=== PATIENT | female | born 1990 | race Caucasian/White ===

== ENCOUNTER 2016-10-04 20:14 | Emergency (ER) | payer MEDICAID ==
--- NOTE | 2016-10-04 21:27 | EDM.PDOC ---
ED HPI - General Chief Complaint: Genitourinary Problem Stated Complaint: POSS UTI Time Seen by Provider: 10/04/16 21:25 Source of Information: Reports: Patient History Limitations: Reports: No limitations - History of Present Illness INITIAL COMMENTS - FREE TEXT/NARRATIVE: Patient presents for evaluation and treatment of urinary symptoms. Patient is approximately 18 weeks . Patient reports that her symptoms first began several weeks ago. She was seen by her PERIANESTHESIA NURSE and had a UA with culture done recently. She said she did not find out the results that she was not start any antibiotics. Patient reports for the last 3 days her urinary symptoms have worsened with today being the worst. Current symptoms include dysuria, incontinence, increased urinary frequency and cloudy urine. Patient also reports right lower quadrant abdominal pain radiating to the right flank and right back. She denies any fevers, chills, nausea, vomiting or vaginal bleeding. Patient is a . Past surgeries include a . She still has her gallbladder and appendix. She is scheduled to see PERIANESTHESIA NURSE in about one month on October 31. Review of the patient's medical records show that she did have a UA and a urine culture mid-September. This showed 1+ leuks with the culture showing contamination. Location, : Reports: abdomen (RLQ), lower back (right), flank (right) - Related Data Allergies/ADRs: Allergies Allergy/AdvReac Type Severity Reaction Status Date / Time No Known Allergies Allergy Verified 10/04/16 20:27 Home Meds: Home Meds Vitamins. 10/04/16 [History] Past Medical History Genitourinary History: Reports: UTI, recurrent - Past Surgical History Female Surgical History: Reports: section Social & Family History - Tobacco Use Smoking Status *Q: Never Smoker Second Hand Smoke Exposure: No - Recreational Drug Use Recreational Drug Use: No ED ROS GENERAL - Review of Systems Review Of Systems: See Below Constitutional: Denies: fever, chills GI/Abdominal: Reports: Abdominal pain (RLQ). Denies: Nausea, Vomiting : Reports: dysuria, flank pain (right), frequency, incontinence (x1), other ( denies any vaginal bleeding) Musculoskeletal: Reports: back pain (right low to mid back) ED EXAM - Physical Exam Exam: See Below Exam Limited By: No limitations General Appearance: alert, WD/WN, no apparent distress Respiratory/Chest: no respiratory distress, lungs clear, normal breath sounds Cardiovascular: normal peripheral pulses, regular rate, rhythm, systolic murmur (grade 2) GI/Abdominal: normal bowel sounds, tender (RLQ), gravid uterus. No: rebound Fundal Height in cm: 18 heart tones: present heart tones per min: 157 Back Exam: CVA tenderness (R) Neurological: alert, oriented, normal cognition Psychiatric: normal affect, normal mood Skin Exam: Warm, Dry, Normal color Course - Vital Signs Last Recorded V/S: Last Vital Signs Temp 37.4 C 10/05/16 00:06 Pulse 80 10/05/16 00:06 Resp 16 10/04/16 23:08 BP 100/52 L 10/04/16 23:08 Pulse Ox 100 10/05/16 00:06 - Orders/Labs/Meds Orders: Active Orders 24 hr Category Date Time Status CULTURE URINE [RM] Stat Lab 10/04/16 22:53 Results Labs: Laboratory Tests 10/04/16 10/04/16 10/04/16 Range/Units 21:10 21:30 21:30 WBC 12.95 H (3.98-10.04) K/mm3 RBC 3.66 L (3.98-5.22) M/mm3 Hgb 11.2 (11.2-15.7) gm/L Hct 32.9 L (34.1-44.9) % MCV 89.9 (79.4-94.8) fl MCH 30.6 (25.6-32.2) pg MCHC 34.0 (32.2-35.5) g/dl RDW Std Deviation 42.8 (36.4-46.3) fL Plt Count 220 (182-369) K/mm3 MPV 9.9 (9.4-12.3) fl Neutrophils % (Manual) 85 H (40-60) % Band Neutrophils % 0 (0-10) % Lymphocytes % (Manual) 13 L (20-40) % Atypical Lymphs % 0 % Monocytes % (Manual) 2 (2-10) % Eosinophils % (Manual) 0 L (0.7-5.8) % Basophils % (Manual) 0 L (0.1-1.2) Platelet Estimate Adequate Plt Morphology Comment Normal RBC Morph Comment Normal Sodium 138 (136-145) mEq/L Potassium 3.5 (3.5-5.1) mEq/L Chloride 103 (98-107) mEq/L Carbon Dioxide 23 (21-32) mEq/L Anion Gap 15.5 H (5-15) BUN 12 (7-18) mg/dL Creatinine 0.7 (0.55-1.02) mg/dL Est Cr Clr Drug Dosing 95.48 mL/min Estimated GFR (MDRD) > 60 (>60) mL/min BUN/Creatinine Ratio 17.1 (14-18) Glucose 99 (74-106) mg/dL Calcium 8.6 (8.5-10.1) mg/dL Total Bilirubin 0.6 (0.2-1.0) mg/dL AST 17 (15-37) U/L ALT 23 (14-59) U/L Alkaline Phosphatase 52 (46-116) U/L C-Reactive Protein 0.7 (<1.0) mg/dL Total Protein 6.8 (6.4-8.2) g/dl Albumin 3.5 (3.4-5.0) g/dl Globulin 3.3 gm/dL Albumin/Globulin Ratio 1.1 (1-2) Urine Color Yellow (Yellow) Urine Appearance Cloudy H (Clear) Urine pH 6.5 (5.0-8.0) Ur Specific [place] > or = 1.030 (1.005-1.030) Urine Protein 3+ H (Negative) Urine Glucose (UA) Negative (Negative) Urine Ketones Trace H (Negative) Urine Occult Blood 3+ H (Negative) Urine Nitrite Negative (Negative) Urine Bilirubin Negative (Negative) Urine Urobilinogen 0.2 (0.2-1.0) Ur Leukocyte Esterase 3+ H (Negative) Urine RBC 0-5 (0-5) /hpf Urine WBC 50-75 H (0-5) /hpf Urine WBC Clumps Few (NOT SEEN) /hpf Ur Squamous Epith Cells 0-5 (0-5) /hpf Urine Bacteria Many H (FEW) /hpf Hyaline Casts 0-5 (0-5) /lpf Urine Mucus Not seen (FEW) /hpf Meds: Medications Discontinued Medications Generic Name Dose Route Start Last Admin Trade Name Freq PRN Reason Stop Dose Admin Acetaminophen 650 mg 10/04/16 22:44 03/24/17 22:51 Tylenol PO 10/04/16 22:45 650 mg NOW ONE Administration Amoxicillin 500 mg 10/04/16 22:30 10/04/16 22:51 Amoxil PO 10/04/16 22:31 500 mg ONETIME ONE Administration Oxycodone/Acetaminophen 1 tab 10/04/16 23:09 10/04/16 23:23 Percocet 325-5 Mg PO 10/04/16 23:10 1 tab ONETIME ONE Administration - Re-Assessments/Exams Free Text/Narrative Re-Assessment/Exam: 10/04/16 23:20 The patient's lab studies have returned. UA is 2+ leuks, 2+ protein, trace ketones, 3+ many bacteria seen on microscopy. urine sent for culture. White blood count is 12.95 with no band cells. Hgb is 11.2, platelets are 200. CRP is within normal limits at 0.7. Sodium is 138, potassium 3.5 chloride is 103. Anion gap is 15.5. I reviewed the lab results with the patient. I am slightly concerned about her right lower quadrant abdominal pain, however, I do not feel that this is appendicitis. I do not see the need to risk radiation to the fetus at this time. I am concerned however that over the course of her stay her pain increased in severity. I did order her some Tylenol. I Discussed case with Dr. Pires. Recommended close follow-up. Pain meds as needed. Patient was ordered one Percocet. 10/04/16 23:40 Patient is feeling greatly improved. She would like to go home at this time. Patient lives in [facility]. She is warned that if her symptoms change or worsen she is to return immediately to the ER. Will have her followup next week with Dr. Moran. Discharge instructions as documented. Departure - Departure Time of Disposition: 23:46 Disposition: Home, Self-Care 01 Condition: fair Clinical Impression: UTI, Urinary tract infectious disease, Instructions: Urinary Tract Infection, Adult Referrals: Sen Moran MD [Primary Care Provider] - Forms: ED Department Discharge Additional Instructions: Rx for amoxicillin 500mg 1 tab PO tid x 10 days RX for percocet 5-325mg tabs #10 1 every 4-6 hours prn pain You were given medication in the ER that can affect your ability to drive and operate machinery. No driving or operating machinery within 12 hours of taking prescription narcotic pain medication. Take the amoxicillin as prescribed. your first dose was given here in the ER. Take one tab 3 times a day for 10 days. make sure you are drinking plenty of fluids. may take [id number] Tylenol as needed for less severe pain. For more severe pain, take Percocet one tab every 4-6 hours as needed.. there is Tylenol in Percocets to do not take more than 4 g of Tylenol from all sources a day. Percocet can be habit-forming, I recommend you take as few of these as needed to control your pain. Do not drive or operate machinery within 12 hours of taking the Percocet. Follow up with Dr. Moran early next week. Please return to the ER immediately should should your symptoms change or worsen. - My Orders Last 24 Hours: My Active Orders 10/04/16 22:53 CULTURE URINE [RM] Stat - Assessment/Plan Last 24 Hours: My Active Orders 10/04/16 22:53 CULTURE URINE [RM] Stat
[2016-10-04] MEDS ORDERED: Amoxicillin 250 MG Cap PO ONE (22:30)
[2016-10-04] MEDS ORDERED: Acetaminophen 325 MG Tab PO ONE (22:44)
[2016-10-04 23:08] VITALS: BP 100/52
[2016-10-04] MEDS ORDERED: Acetaminophen/oxyCODONE 325-5 MG Tab PO ONE (23:09)
== END 2016-10-05 00:03 | disposition home or self-care (01) ==
LOC: JD.ED 20:14
DX: O23.42 Unspecified infection of urinary tract in pregnancy, second trimester (principal); Z3A.18 18 weeks gestation of pregnancy
CPT/HCPCS: 36415; 80053; 81001; 85025; 86140; 87086; 87088; 87186; 99284; A9270; 99283

== ENCOUNTER 2017-02-19 02:08 | Inpatient (IN) | payer MEDICAID ==
--- NOTE | 2017-02-18 14:26 | PCM.LDHP ---
L&D History of Present Illness - General Date of Service: 02/18/17 Admit Problem/Dx: Admission Diagnosis/Problem Admission Diagnosis/Problem Source of Information: Patient History Limitations: Reports: No Limitations - History of Present Illness Introduction:: 26 y/o JANES 02/20/2017 EGA as of 02/19/2017 [id number] scheduled for repeat CS Friday AM 0800 GBS negative. A positive. Improves with: Reports: None Worsens with: Reports: None Associated Symptoms: Reports: N - Related Data Allergies/Adverse Reactions: Allergies Allergy/AdvReac Type Severity Reaction Status Date / Time No Known Allergies Allergy Verified 10/04/16 20:27 Home Medications: Home Meds Vitamins. 10/04/16 [History] Past Medical History Genitourinary History: Reports: UTI, Recurrent : 2 Para: 1 (1001) - Past Surgical History Female Surgical History: Reports: Section Social & Family History - Tobacco Use Smoking Status *Q: Never Smoker Second Hand Smoke Exposure: No - Recreational Drug Use Recreational Drug Use: No H&P Review of Systems - Review of Systems: Review Of Systems: See Below General: Reports: No Symptoms HEENT: Reports: No Symptoms Pulmonary: Reports: No Symptoms Cardiovascular: Reports: No Symptoms Gastrointestinal: Reports: No Symptoms Genitourinary: Reports: No Symptoms Musculoskeletal: Reports: No Symptoms Skin: Reports: No Symptoms Psychiatric: Reports: No Symptoms Neurological: Reports: No Symptoms Hematologic/Lymphatic: Reports: No Symptoms Immunologic: Reports: No Symptoms L&D Exam - Exam Exam: See Below - Vital Signs Weight: 151 lb - OB Specific Fundal Height In cm: 39 Movement: Active Heart Tones: Present Heart Tones per Min: 140 Heart Rate (FHR) Variability: Moderate (6-25 bmp) Presentation: Vertex - Exam General: Alert, Oriented HEENT: Conjunctiva Clear, Mucosa Moist & [place], PERRLA Neck: Supple, Trachea Midline Lungs: Clear to Auscultation, Normal Respiratory Effort Cardiovascular: Regular Rate, Regular Rhythm GI/Abdominal Exam: Normal Bowel Sounds, Soft, Non-Tender, No Organomegaly, No Distention, No Abnormal Bruit, No Mass, Pelvis Stable Genitourinary: Normal external exam, Normal bimanual exam, Normal speculum exam Back Exam: Normal Inspection, Full Range of Motion Extremities: Normal Inspection, Normal Range of Motion, Non-Tender, No Pedal Edema, Normal Capillary Refill Skin: Warm, Dry, Intact Psychiatric: Alert, Normal Affect, Normal Mood - Problem List (1) 39 weeks gestation of SNOMED Code(s): 94056496 ICD Code: Z3A.39 - 39 WEEKS GESTATION OF Status: Acute (2) Previous delivery affecting , antepartum SNOMED Code(s): 457919312, 220582042 ICD Code: O34.219 - MATERNAL CARE FOR UNSP TYPE SCAR FROM PREVIOUS DEL Status: Acute Problem List Initiated/Reviewed/Updated: No Assessment/Plan Comment:: Plan repeat CS Friday02/19/17
--- NOTE | 2017-02-19 02:20 | PCM.SN ---
- Free Text/Narrative Note: Patient presented to L&D with contractions and c/o leaking fluid, proceed with section.
[2017-02-19] MEDS ORDERED: Morphine PF 10 MG/10 ML SDV ONE (02:55)
[2017-02-19] MEDS ORDERED: Sodium Chloride 0.9% 10 ML Syringe FLUSH PRN ×2 (03:00→03:51)
[2017-02-19] MEDS ORDERED: Citric Acid/Sodium Citrate Solution 30 ML Cup PO ONE (03:00)
[2017-02-19] MEDS ORDERED: Metoclopramide 10 MG/2 ML SDV IVPUSH ONE (03:00)
[2017-02-19] MEDS ORDERED: ceFAZolin 2 GM in Premix Bag 1 BAG IV ONE (03:00)
[2017-02-19] MEDS ORDERED: Ketorolac 30 MG/ML SDV IVPUSH SCH (03:00)
[2017-02-19] MEDS ORDERED: Oxytocin 10 Units/1 ML SDV IM ONE (03:00)
[2017-02-19] MEDS ORDERED: Lactated Ringers 1,000 ML IV SCH (03:00)
[2017-02-19] MEDS ORDERED: Oxytocin/Lactated Ringers 10 UNIT/1,000 ML BAG IV SCH (03:00)
[2017-02-19] MEDS ORDERED: ceFAZolin 1 GM Vial ONE (03:15)
[2017-02-19] MEDS ORDERED: Lactated Ringers 1,000 ML ONE (03:20)
--- NOTE | 2017-02-19 03:34 | PCM.PREANE ---
Preanesthetic Assessment - Procedure Proposed Procedure: REpeat - Anesthesia/Transfusion/Family Hx Anesthesia History: Prior Anesthesia Without Reaction Transfusion History: No Prior Transfusion(s) - Review of Systems General: No Symptoms Pulmonary: No Symptoms Cardiovascular: No Symptoms Gastrointestinal: No Symptoms Neurological: No Symptoms Other: Reports: None - Physical Assessment NPO Status Date: 02/18/17 NPO Status Time: 23:00 Pulse: 77 O2 Sat by Pulse Oximetry: 99 Respiratory Rate: 18 Blood Pressure: 144/94 Temperature: 36.8 C Height: 1.57 m Weight: 73.482 kg ASA Class: 2 Mental Status: Alert & Oriented x3 Airway Class: Mallampati = 1 Dentition: Reports: Normal Dentition Thyro-Mental Finger Breadths: 3 Mouth Opening Finger Breadths: 3 ROM/Head Extension: Full Lungs: Clear to Auscultation, Normal Respiratory Effort Cardiovascular: Regular Rate, Regular Rhythm, No Murmurs - Lab Values: CBC and BMP from 02/18/17 all within normal limits - Allergies Allergies/Adverse Reactions: Allergies Allergy/AdvReac Type Severity Reaction Status Date / Time No Known Allergies Allergy Verified 10/04/16 20:27 - Blood Blood Available: No - Anesthesia Plan Pre-Op Medication Ordered: Antacids - Acknowledgements Anesthesia Type Planned: Spinal Pt an Appropriate Candidate for the Planned Anesthesia: Yes Alternatives and Risks of Anesthesia Discussed w Pt/Guardian: Yes Pt/Guardian Understands and Agrees with Anesthesia Plan: Yes PreAnesthesia Questionnaire Respiratory History: Reports: Asthma Genitourinary History: Reports: UTI, Recurrent 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 pt counseled on need to refrain from beginning smoking again for her own health and that of her children) Tobacco Use Within Last Twelve Months: Cigarettes Second Hand Smoke Exposure: No Days Per Week of Alcohol Use: 0 Recreational Drug Use History: No - HOME MEDS Home Medications: Home Meds Vitamins. 10/04/16 [History] - CURRENT (IN HOUSE) MEDS Current Meds: Current Medications Lactated Ringer's (Ringers, Lactated) 1,000 mls @ 125 mls/hr IV ASDIRECTED BHUMIKA Last Admin: 02/19/17 02:06 Dose: 999 mls/hr Oxytocin/Lactated Ringer's (Pitocin In Lr 10 Units/1,000 Ml) 10 unit in 1,000 mls @ 3,000 mls/hr IV TITRATE BHUMIKA; 500 MUNITS/MIN PRN Reason: Protocol Sodium Chloride (Saline Flush) 10 ml FLUSH ASDIRECTED PRN PRN Reason: Keep Vein Open Discontinued Medications Cefazolin Sodium (Ancef) Confirm Administered Dose 2 gm .ROUTE .STK-MED ONE Stop: 02/19/17 03:16 Citric Acid/Sodium Citrate (Bicitra Solution) 30 ml PO ONETIME ONE Stop: 02/19/17 03:01 Last Admin: 02/19/17 02:32 Dose: 30 ml Cefazolin Sodium/Dextrose 2 gm (/ Premix) 50 mls @ 100 mls/hr IV ONETIME ONE Stop: 02/19/17 03:29 Lactated Ringer's (Ringers, Lactated) Confirm Administered Dose 1,000 mls @ as directed .ROUTE .STK-MED ONE Stop: 02/19/17 03:21 Metoclopramide HCl (Reglan) 10 mg IVPUSH ONETIME ONE Stop: 02/19/17 03:01 Last Admin: 02/19/17 02:32 Dose: 10 mg Morphine Sulfate (Duramorph Pf) Confirm Administered Dose 10 mg .ROUTE .STK-MED ONE Stop: 02/19/17 02:56 Oxytocin (Pitocin) 10 unit IM ONETIME ONE Stop: 02/19/17 03:01
--- NOTE | 2017-02-19 03:47 | PCM.OPNOTE ---
- General Post-Op/Procedure Note Date of Surgery/Procedure: 02/19/17 Operative Procedure(s): Repeat low segment transverse Pre Op Diagnosis: Estimated gestational age 39+ weeks prior section Post-Op Diagnosis: Same Anesthesia Technique: Spinal Primary Surgeon: Sen Moran Secondary Surgeon: Ashley Nix Anesthesia Provider: Won Bright Raise Miner: Karina Fitzgerald ([id number]) Fluid Replacement, Intraop: 1,500 Output, Urine Amount: 180 EBL in mLs: 1,000 Drain/Tube Comments:: Barkley Complications: None Condition: Good Free Text/Narrative:: Patient was transported to operating room #1 and placed under spinal anesthesia in the supine position with wedge under the right hip and right flank Barkley catheter placed gravity drainage vaginal prep and abdominal prep performed prepared and draped in a sterile fashion SCDs in place and functioning prior surgery Ancef 2 g given intravenously prior surgery timeout performed confirming name date of and procedure as repeat section adequate level of anesthesia was confirmed and 20 mL of 0.5% Marcaine injected into the subcutaneous tissue and area of the planned incision the Pfannenstiel incision was made in the area of the old scar and care was sharp section to into the anterior fascia peritoneal cavity was entered without difficulty bladder flap. Pushed caudad and a low segment transverse section performed delivering a male liveborn is 0310 hrs. on Friday02/19/17 Apgars 9/9 weight 8 lbs. 5 oz. cord blood was collected from three-vessel cord and placenta removed manually endometrial cavity inspected sponge needle pack asthma sharp count correct times one cervical patency confirmed and the uterine incision closed in 2 layers first layer running locking suture of 0 Monocryl second layer horizontal imbricating suture modified Lembert type with 0 Monocryl both tubes and ovaries were normal filmy adhesions were lysed with electrocautery clots were cleaned from the gutters and cul-de-sac uterus placed into abdominal cavity uterine incision reinspected no bleeding sponge needle pack asthma sharp count correct 2 and abdominal cavity was closed with #1 PDS for the anterior fascia irrigation carried out and septated tissue in the subcuticular closure with 3-0 Monocryl on Ross needle and Dermabond Preneo applied. Clots cleaned from the vagina at the end the procedure patient transported postanesthesia care unit in satisfactory condition no blood transfusions were required.
[2017-02-19] MEDS ORDERED: Docusate Sodium 100 MG Cap PO PRN (03:51)
[2017-02-19] MEDS ORDERED: ePHEDrine 50 MG/ML SDV IVPUSH PRN (03:51)
[2017-02-19] MEDS ORDERED: Naloxone 0.4 MG/ML SDV IVPUSH PRN (03:51)
[2017-02-19] MEDS ORDERED: Acetaminophen 325 MG Tab PO PRN (03:51)
[2017-02-19] MEDS ORDERED: Ondansetron 4 MG/2 ML SDV IV PRN (03:51)
[2017-02-19] MEDS ORDERED: Lanolin 100% Cream 7 GM Tube TOP PRN (03:51)
[2017-02-19] MEDS ORDERED: diphenhydrAMINE 50 MG/ML SDV IVPUSH PRN (03:51)
--- NOTE | 2017-02-19 03:54 | PCM.POSTAN ---
POST ANESTHESIA ASSESSMENT - MENTAL STATUS Mental Status: Alert, Oriented - VITAL SIGNS Pulse Rate: 76 SaO2: 94 Resp Rate: 16 Blood Pressure: 120/64 Temperature: 36.4 C - RESPIRATORY Respiratory Status: Respiratory Rate WNL, Airway Patent, O2 Saturation Stable - CARDIOVASCULAR CV Status: Pulse Rate WNL, Blood Pressure Stable - GASTROINTESTINAL GI Status: No Symptoms - POST OP HYDRATION Hydration Status: Adequate & Stable
[2017-02-19] MEDS ORDERED: Dextrose 5%-Lactated Ringers 1,000 ML IV SCH (04:00)
[2017-02-19] MEDS ORDERED: Dextrose 5%-0.45% NaCl 1,000 ML IV SCH (04:00)
[2017-02-19] MEDS: Ketorolac 30 MG/ML SDV IVPUSH SCH ×3 (09:15→20:38)
--- NOTE | 2017-02-19 10:22 | PCM48HPAN ---
Post Anesthesia Note - EVALUATION WITHIN 48HRS OF ANESTHETIC Vital Signs in Normal Range: Yes Patient Participated in Evaluation: Yes Respiratory Function Stable: Yes Airway Patent: Yes Cardiovascular Function Stable: Yes Hydration Status Stable: Yes Pain Control Satisfactory: Yes Nausea and Vomiting Control Satisfactory: Yes Mental Status Recovered: Yes - COMMENTS/OBSERVATIONS Free Text/Narrative:: Patient denies any headaches, back pain, or residual numbness or tingling to LE.
[2017-02-19] MEDS: Acetaminophen/oxyCODONE 325-5 MG Tab PO PRN (23:40)
[2017-02-20] MEDS: Acetaminophen/oxyCODONE 325-5 MG Tab PO PRN ×4 (04:03→23:05)
[2017-02-20] MEDS: Ibuprofen 600 MG Tab PO PRN (08:42)
--- NOTE | 2017-02-20 09:59 | PCM.SN ---
- Free Text/Narrative Note: POD#1 Afebrile, chest clear, cardiac exam normal, breast feeding. Uterus involuting normally. No heavy vaginal bleeding. No calf tenderness.
[2017-02-21] MEDS: Acetaminophen/oxyCODONE 325-5 MG Tab PO PRN ×2 (05:25→10:43)
[2017-02-21 05:40] VITALS: BP 137/83
--- NOTE | 2017-02-21 09:06 | PCM.DCSUM1 ---
Discharge Summary - Hospital Course Free Text/Narrative:: [facility], [place] [facility] Post-Op/Procedure Note Patient Name: FANY PINEDA Date of : 86 Patient Status: Inpatient Attending Provider: Sen Moran Date: 02/19/17 03:42 Initialization Date: 02/19/17 03:42 - General Post-Op/Procedure Note Date of Surgery/Procedure: 02/19/17 Operative Procedure(s): Repeat low segment transverse Pre Op Diagnosis: Estimated gestational age 39+ weeks prior section Post-Op Diagnosis: Same Anesthesia Technique: Spinal Primary Surgeon: Sen Moran Secondary Surgeon: Ashley Nix Anesthesia Provider: Won Bright Corn Crop Supervisor: Karina Fitzgerald (MS4) Fluid Replacement, Intraop: 1,500 Output, Urine Amount: 180 EBL in mLs: 1,000 Drain/Tube Comments:: Barkley Complications: None Condition: Good Free Text/Narrative:: Patient was transported to operating room #1 and placed under spinal anesthesia in the supine position with wedge under the right hip and right flank Barkley catheter placed gravity drainage vaginal prep and abdominal prep performed prepared and draped in a sterile fashion SCDs in place and functioning prior surgery Ancef 2 g given intravenously prior surgery timeout performed confirming name date of and procedure as repeat section adequate level of anesthesia was confirmed and 20 mL of 0.5% Marcaine injected into the subcutaneous tissue and area of the planned incision the Pfannenstiel incision was made in the area of the old scar and care was sharp section to into the anterior fascia peritoneal cavity was entered without difficulty bladder flap. Pushed caudad and a low segment transverse section performed delivering a male liveborn is 0310 hrs. on Friday02/19/17 Apgars 9/9 weight 8 lbs. 5 oz. cord blood was collected from three-vessel cord and placenta removed manually endometrial cavity inspected sponge needle pack asthma sharp count correct times one cervical patency confirmed and the uterine incision closed in 2 layers first layer running locking suture of 0 Monocryl second layer horizontal imbricating suture modified Lembert type with 0 Monocryl both tubes and ovaries were normal filmy adhesions were lysed with electrocautery clots were cleaned from the gutters and cul-de-sac uterus placed into abdominal cavity uterine incision reinspected no bleeding sponge needle pack asthma sharp count correct 2 and abdominal cavity was closed with #1 PDS for the anterior fascia irrigation carried out and septated tissue in the subcuticular closure with 3-0 Monocryl on Ross needle and Dermabond Preneo applied. Clots cleaned from the vagina at the end the procedure patient transported postanesthesia care unit in satisfactory condition no blood transfusions were required. HPI Initial Comments: [facility], [place] [facility] Post-Op/Procedure Note Patient Name: FANY PINEDA Date of : 86 Patient Status: Inpatient Attending Provider: Sen Moran Date: 02/19/17 03:42 Initialization Date: 02/19/17 03:42 - General Post-Op/Procedure Note Date of Surgery/Procedure: 02/19/17 Operative Procedure(s): Repeat low segment transverse Pre Op Diagnosis: Estimated gestational age 39+ weeks prior section Post-Op Diagnosis: Same Anesthesia Technique: Spinal Primary Surgeon: Sen Moran Secondary Surgeon: Ashley Nix Anesthesia Provider: Won Bright [employer] Supervisor: Karina Fitzgerald (MS4) Fluid Replacement, Intraop: 1,500 Output, Urine Amount: 180 EBL in mLs: 1,000 Drain/Tube Comments:: Barkley Complications: None Condition: Good Free Text/Narrative:: Patient was transported to operating room #1 and placed under spinal anesthesia in the supine position with wedge under the right hip and right flank Barkley catheter placed gravity drainage vaginal prep and abdominal prep performed prepared and draped in a sterile fashion SCDs in place and functioning prior surgery Ancef 2 g given intravenously prior surgery timeout performed confirming name date of and procedure as repeat section adequate level of anesthesia was confirmed and 20 mL of 0.5% Marcaine injected into the subcutaneous tissue and area of the planned incision the Pfannenstiel incision was made in the area of the old scar and care was sharp section to into the anterior fascia peritoneal cavity was entered without difficulty bladder flap. Pushed caudad and a low segment transverse section performed delivering a male liveborn is 0310 hrs. on Friday02/19/17 Apgars 9/9 weight 8 lbs. 5 oz. cord blood was collected from three-vessel cord and placenta removed manually endometrial cavity inspected sponge needle pack asthma sharp count correct times one cervical patency confirmed and the uterine incision closed in 2 layers first layer running locking suture of 0 Monocryl second layer horizontal imbricating suture modified Lembert type with 0 Monocryl both tubes and ovaries were normal filmy adhesions were lysed with electrocautery clots were cleaned from the gutters and cul-de-sac uterus placed into abdominal cavity uterine incision reinspected no bleeding sponge needle pack asthma sharp count correct 2 and abdominal cavity was closed with #1 PDS for the anterior fascia irrigation carried out and septated tissue in the subcuticular closure with 3-0 Monocryl on Ross needle and Dermabond Preneo applied. Clots cleaned from the vagina at the end the procedure patient transported postanesthesia care unit in satisfactory condition no blood transfusions were required. Brief History: [facility], [place] [facility] . [facility]Pro[facility]. [facility]: [id number] Date of : Patient Status: Inpatient. Attending Provider: Sen Moranount Number: [id number]. Date: 02/19/17 03:42Initialization Date: 02/19/17 03:42. - General Post-Op/Procedure Note. Date of Surgery/Procedure: 02/19/17. Operative Procedure(s): Repeat low segment transverse . Pre Op Diagnosis: Estimated gestational age 39+ weeks prior section. Post-Op Diagnosis: Same. Anesthesia Technique: Spinal. Primary Surgeon: Sen Moran. Secondary Surgeon: Ashley Nix. Anesthesia Provider: Won Bright. Corn Crop Supervisor: Karina Fitzgerald (MS4). Fluid Replacement, Intraop: 1,500. Output, Urine Amount: 180. EBL in mLs: 1,000. Drain/Tube Comments:: Barkley. Complications: None. Condition: Good. Free Text/Narrative:: Patient was transported to operating room #1 and placed under spinal anesthesia in the supine position with wedge under the right hip and right flank Barkley catheter placed gravity drainage vaginal prep and abdominal prep performed prepared and draped in a sterile fashion SCDs in place and functioning prior surgery Ancef 2 g given intravenously prior surgery timeout performed confirming name date of and procedure as repeat section adequate level of anesthesia was confirmed and 20 mL of 0.5% Marcaine injected into the subcutaneous tissue and area of the planned incision the Pfannenstiel incision was made in the area of the old scar and care was sharp section to into the anterior fascia peritoneal cavity was entered without difficulty bladder flap. Pushed caudad and a low segment transverse section performed delivering a male liveborn is 0310 hrs. on Friday02/19/17 Apgars 9/9 weight 8 lbs. 5 oz. cord blood was collected from three-vessel cord and placenta removed manually endometrial cavity inspected sponge needle pack asthma sharp count correct times one cervical patency confirmed and the uterine incision closed in 2 layers first layer running locking suture of 0 Monocryl second layer horizontal imbricating suture modified Lembert type with 0 Monocryl both tubes and ovaries were normal filmy adhesions were lysed with electrocautery clots were cleaned from the gutters and cul-de-sac uterus placed into abdominal cavity uterine incision reinspected no bleeding sponge needle pack asthma sharp count correct 2 and abdominal cavity was closed with #1 PDS for the anterior fascia irrigation carried out and septated tissue in the subcuticular closure with 3-0 Monocryl on Ross needle and Dermabond Preneo applied. Clots cleaned from the vagina at the end the procedure patient transported postanesthesia care unit in satisfactory condition no blood transfusions were required. - Discharge Data Discharge Date: 02/21/17 Discharge Disposition: Home, Self-Care 01 Condition: Good - Discharge Diagnosis/Problem(s) (1) 39 weeks gestation of SNOMED Code(s): 90814413 ICD Code: Z3A.39 - 39 WEEKS GESTATION OF Status: Acute Current Visit: Yes (2) Previous delivery affecting , antepartum SNOMED Code(s): 590423963, 238001746 ICD Code: O34.219 - MATERNAL CARE FOR UNSP TYPE SCAR FROM PREVIOUS DEL Status: Acute Current Visit: Yes - Patient Summary/Data Operative Procedure(s) Performed: Repeat low segment transverse Complications: none Consults: none Hospital Course: uneventful - Patient Instructions Diet: Regular Diet as Tolerated Driving: Do Not Drive (x2 weeks) Showering/Bathing: May Shower, No Tub Bathing/Swimming (x6 weeks) Notify Provider of: Fever, Increased Pain, Swelling and Redness, Drainage, Nausea and/or Vomiting - Discharge Plan Home Medications: Home Meds Vitamins. 10/04/16 [History] Acetaminophen [Tylenol] 650 mg PO Q6H PRN #0 tablet 02/21/17 [Rx] Acetaminophen/oxyCODONE [Percocet 325-5 MG] 1 tab PO Q6H PRN #25 tablet [Rx] Docusate Sodium [Colace] 100 mg PO Q12H PRN #0 cap 02/21/17 [Rx] Ibuprofen [IJD: Ibuprofen] 200 - 600 mg PO Q6H PRN #0 tablet 02/21/17 [Rx] Referrals: Sen Moran MD [Physician] - (4 weeks) - Discharge Summary/Plan Comment DC Time >30 min.: No - Patient Data Vitals - Most Recent: Last Vital Signs Temp 98.1 F 02/21/17 05:28 Pulse 82 02/21/17 05:28 Resp 15 02/21/17 05:28 BP 137/83 02/21/17 05:28 Pulse Ox 99 02/21/17 05:28 Weight - Most Recent: 162 lb I&O - Last 24 hours: Intake & Output 02/20/17 02/21/17 02/21/17 22:59 06:59 14:59 Intake Total 440 Balance 440 Med Orders - Current: Current Medications Acetaminophen (Tylenol) 650 mg PO Q4H PRN PRN Reason: mild pain or fever Diphenhydramine HCl (Benadryl) 25 mg IVPUSH Q6H PRN PRN Reason: Itching or Nausea Last Admin: 02/19/17 09:11 Dose: 25 mg Docusate Sodium (Colace) 100 mg PO Q12H PRN PRN Reason: Constipation Last Admin: 02/20/17 23:05 Dose: 100 mg Emollient Ointment (Lansinoh Hpa) 0 gm TOP ASDIRECTED PRN PRN Reason: Sore Nipples Ephedrine Sulfate (Ephedrine Sulfate) 5 mg IVPUSH SEECOMMENT PRN PRN Reason: Other Dextrose/Sodium Chloride (Dextrose 5%-1/2 Ns) 1,000 mls @ 125 mls/hr IV ASDIRECTED [facility] Last Admin: 02/19/17 15:36 Dose: 125 mls/hr Ibuprofen (Motrin) 600 mg PO Q6H PRN PRN Reason: mild pain or fever Last Admin: 02/20/17 08:42 Dose: 600 mg Naloxone HCl (Narcan) 0.1 mg IVPUSH SEECOMMENT PRN PRN Reason: Respiratory Depression Ondansetron HCl (Zofran) 4 mg IV Q8H PRN PRN Reason: Nausea/Vomiting Last Admin: 02/19/17 09:08 Dose: 4 mg Oxycodone/Acetaminophen (Percocet 325-5 Mg) 2 tab PO Q4H PRN PRN Reason: Pain (moderate 4-6) Last Admin: 02/21/17 05:25 Dose: 2 tab Sodium Chloride (Saline Flush) 10 ml FLUSH ASDIRECTED PRN PRN Reason: Keep Vein Open Discontinued Medications Cefazolin Sodium (Ancef) Confirm Administered Dose 2 gm .ROUTE .STK-MED ONE Stop: 02/19/17 03:16 Citric Acid/Sodium Citrate (Bicitra Solution) 30 ml PO ONETIME ONE Stop: 02/19/17 03:01 Last Admin: 02/19/17 02:32 Dose: 30 ml Lactated Ringer's (Ringers, Lactated) 1,000 mls @ 125 mls/hr IV ASDIRECTED [facility] Last Admin: 02/19/17 02:06 Dose: 999 mls/hr Oxytocin/Lactated Ringer's (Pitocin In Lr 10 Units/1,000 Ml) 10 unit in 1,000 mls @ 3,000 mls/hr IV TITRATE BHUMIKA; 500 MUNITS/MIN PRN Reason: Protocol Cefazolin Sodium/Dextrose 2 gm (/ Premix) 50 mls @ 100 mls/hr IV ONETIME ONE Stop: 02/19/17 03:29 Last Admin: 02/19/17 07:32 Dose: Not Given Lactated Ringer's (Ringers, Lactated) Confirm Administered Dose 1,000 mls @ as directed .ROUTE .STK-MED ONE Stop: 02/19/17 03:21 Dextrose/Lactated Ringer's (Dextrose 5%-Lactated Ringers) 1,000 mls @ 125 mls/ hr IV ASDIRECTED [facility] Stop: 02/19/17 11:59 Last Admin: 02/19/17 07:07 Dose: 125 mls/hr Ketorolac Tromethamine (Toradol) 30 mg IVPUSH ONETIME [facility] Last Admin: 02/19/17 04:03 Dose: 30 mg Ketorolac Tromethamine (Toradol) 30 mg IVPUSH Q6H [facility] Stop: 02/19/17 21:01 Last Admin: 02/19/17 20:38 Dose: 30 mg Metoclopramide HCl (Reglan) 10 mg IVPUSH ONETIME ONE Stop: 02/19/17 03:01 Last Admin: 02/19/17 02:32 Dose: 10 mg Morphine Sulfate (Duramorph Pf) Confirm Administered Dose 10 mg .ROUTE .STK-MED ONE Stop: 02/19/17 02:56 Oxytocin (Pitocin) 10 unit IM ONETIME ONE Stop: 02/19/17 03:01 Last Admin: 02/19/17 07:33 Dose: Not Given Sodium Chloride (Saline Flush) 10 ml FLUSH ASDIRECTED PRN PRN Reason: Keep Vein Open *Q Meaningful Use (DIS) - VTE *Q VTE Criteria *Q: - Stroke *Q Stroke Criteria *Q: - AMI *Q AMI Criteria *Q:
[2017-02-21] MEDS: Ibuprofen 600 MG Tab PO PRN (10:44)
== END 2017-02-21 11:00 | disposition home or self-care (01) | DRG 766 ==
LOC: JD.OB 02:08 → JD.MS 02:08
PROVIDERS: ADMIT Obstetrics & Gynecology; ATTEND Obstetrics & Gynecology
PROC: 10D00Z1 Extraction of Products of Conception, Low, Open Approach (ICD-10-PCS; principal; 2017-02-19)
DX: O34.211 Maternal care for low transverse scar from previous cesarean delivery (principal); N85.8 Other specified noninflammatory disorders of uterus; Z3A.40 40 weeks gestation of pregnancy; Z37.0 Single live birth
CPT/HCPCS: 01961; 36415; 85025; A9270-GY; J0690; J1200; J1885; J2270; J2405; J2765; J7042; J7120

== ENCOUNTER 2019-04-08 19:56 | Emergency (ER) | payer BC ==
[2019-04-08 20:12] VITALS: BP 115/57; PULSE 91
[2019-04-08] MEDS ORDERED: Sodium Chloride 0.9% 1,000 ML IV ONE (21:25)
[2019-04-08] MEDS ORDERED: Ketorolac 30 MG/ML SDV IVPUSH ONE (21:25)
[2019-04-08] MEDS ORDERED: Sodium Chloride 0.9% 10 ML Syringe FLUSH PRN (21:26)
[2019-04-08] MEDS ORDERED: Levofloxacin 750 MG Tab PO STA (23:29)
--- NOTE | 2019-04-08 23:34 | EDM.PDOC ---
ED HPI GENERAL MEDICAL PROBLEM - General Chief Complaint: Genitourinary Problem Stated Complaint: ABDOMINAL PAIN Time Seen by Provider: 04/08/19 23:11 Source of Information: Reports: Patient History Limitations: Reports: No Limitations - History of Present Illness INITIAL COMMENTS - FREE TEXT/NARRATIVE: 28-year-old female presents for evaluation and treatment of suprapubic and low back pain. Patient reports she's been experiencing dysuria since the beginning of the week. She currently reports symptoms of malaise, dysuria, lightheadedness , fevers, chills, suprapubic pain and back pain. She denies any syncope, cough or sore throat. Temperature is 102.3 upon arrival to the ER. No Over-the- counter treatment such as Tylenol or Motrin prior to arrival in the ER. She reports that she has a history of urinary tract infections. Seen the walk-in clinic prior to arrival in the ER. She had a UA done which was unremarkable therefore she was sent over to us for further care. Primary care provider is Karla Hassan. Suprapubic Pain Score (Numeric/FACES): 7 - Related Data Allergies Allergy/AdvReac Type Severity Reaction Status Date / Time codeine Allergy Vomiting Verified 04/08/19 20:13 Home Meds: Home Meds Escitalopram Oxalate [Lexapro] 5 mg PO DAILY 02/09/19 [History] buPROPion HCl [Wellbutrin Xl] 300 mg PO DAILY 02/09/19 [History] Levofloxacin [Levaquin] 750 mg PO DAILY #6 tablet 04/08/19 [Rx] Past Medical History - Past Health History Medical/Surgical History: Denies Medical/Surgical History HEENT History: Reports: Impaired Vision Respiratory History: Reports: Asthma Genitourinary History: Reports: UTI, Recurrent MANAGER OF PROGRAM History: Reports: , Other (See Below) Other MANAGER OF PROGRAM History: Psychiatric History: Reports: Anxiety, Depression - Past Surgical History Female Surgical History: Reports: Section Social & Family History - Tobacco Use Smoking Status *Q: Former Smoker Used Tobacco, but Quit: Yes Month/Year Tobacco Last Used: february 2019 - Caffeine Use Caffeine Use: Reports: Coffee Other Caffeine Use: daily ED ROS GENERAL - Review of Systems Review Of Systems: See Below Constitutional: Reports: Fever, Chills, Malaise HEENT: Denies: Ear Pain, Throat Pain Respiratory: Denies: Cough GI/Abdominal: Reports: Abdominal Pain (Suprapubic), Nausea, Vomiting : Reports: Dysuria Musculoskeletal: Reports: Back Pain Neurological: Denies: Syncope ED EXAM, RENAL/ - Physical Exam Exam: See Below Exam Limited By: No Limitations General Appearance: Alert, WD/WN, Mild Distress Eye Exam: Bilateral Eye: Normal Inspection Ears: Normal External Exam Nose: Normal Inspection Throat/Mouth: Normal Inspection, Normal Lips, Normal Voice, No Airway Compromise Neck: Normal Inspection, Full Range of Motion Respiratory/Chest: No Respiratory Distress, Lungs Clear, Normal Breath Sounds Cardiovascular: Normal Peripheral Pulses, Regular Rate, Rhythm, Systolic Murmur (grade 2 ) GI/Abdominal: Normal Bowel Sounds, Soft, Tender (suprapubic), Other (no pain at mcburnies point) Neurological: Alert, Oriented, Normal Cognition Psychiatric: Normal Affect, Normal Mood Skin Exam: Warm, Dry, Normal Color Course - Vital Signs Last Recorded V/S: Last Vital Signs Temp 102.3 F H 04/08/19 20:06 Pulse 91 04/08/19 20:06 Resp 18 04/08/19 20:06 BP 115/57 L 04/08/19 20:06 Pulse Ox 100 04/08/19 20:06 - Orders/Labs/Meds Orders: Active Orders 24 hr Category Date Time Status Peripheral IV Care [RC] . DIRECTED Care 04/08/19 21:26 Active CULTURE URINE [RM] Stat Lab 04/08/19 22:33 Results Peripheral IV Insertion Adult [OM.PC] Routine Oth 04/08/19 21:26 Ordered Labs: Laboratory Tests 04/08/19 04/08/19 04/08/19 Range/Units 21:40 21:40 22:30 WBC 10.55 H (3.98-10.04) K/mm3 RBC 4.76 (3.98-5.22) M/mm3 Hgb 14.4 D (11.2-15.7) gm/dl Hct 42.0 (34.1-44.9) % MCV 88.2 (79.4-94.8) fl MCH 30.3 (25.6-32.2) pg MCHC 34.3 (32.2-35.5) g/dl RDW Std Deviation 38.5 (36.4-46.3) fL Plt Count 188 (182-369) K/mm3 MPV 10.6 (9.4-12.3) fl Neutrophils % (Manual) 86 H (40-60) % Band Neutrophils % 1 (0-10) % Lymphocytes % (Manual) 13 L (20-40) % Atypical Lymphs % 0 % Monocytes % (Manual) 0 L (2-10) % Eosinophils % (Manual) 0 L (0.7-5.8) % Basophils % (Manual) 0 L (0.1-1.2) Toxic Granulation 1+ slight Platelet Estimate Adequate Plt Morphology Comment Normal RBC Morph Comment Normal Sodium 135 L (136-145) mEq/L Potassium 3.5 (3.5-5.1) mEq/L Chloride 102 (98-107) mEq/L Carbon Dioxide 25 (21-32) mEq/L Anion Gap 11.5 (5-15) BUN 14 (7-18) mg/dL Creatinine 1.0 (0.55-1.02) mg/dL Est Cr Clr Drug Dosing 68.05 mL/min Estimated GFR (MDRD) > 60 (>60) mL/min BUN/Creatinine Ratio 14.0 (14-18) Glucose 109 H (74-106) mg/dL Calcium 8.8 (8.5-10.1) mg/dL Total Bilirubin 0.9 (0.2-1.0) mg/dL AST 14 L (15-37) U/L ALT 21 (14-59) U/L Alkaline Phosphatase 60 (46-116) U/L C-Reactive Protein 2.4 H* (<1.0) mg/dL Total Protein 7.4 (6.4-8.2) g/dl Albumin 3.9 (3.4-5.0) g/dl Globulin 3.5 gm/dL Albumin/Globulin Ratio 1.1 (1-2) Urine Color Yellow (Yellow) Urine Appearance Clear (Clear) Urine pH 7.5 (5.0-8.0) Ur Specific [place] 1.020 (1.005-1.030) Urine Protein Negative (Negative) Urine Glucose (UA) Negative (Negative) Urine Ketones Negative (Negative) Urine Occult Blood Trace-intact H (Negative) Urine Nitrite Negative (Negative) Urine Bilirubin Negative (Negative) Urine Urobilinogen 0.2 (0.2-1.0) Ur Leukocyte Esterase Trace H (Negative) Urine RBC 0-5 (0-5) /hpf Urine WBC 0-5 (0-5) /hpf Ur Squamous Epith Cells 5-10 H (0-5) /hpf Urine Bacteria Moderate H (FEW) /hpf Urine Mucus Rare (FEW) /hpf Meds: Medications Discontinued Medications Generic Name Dose Route Start Last Admin Trade Name Freq PRN Reason Stop Dose Admin Sodium Chloride 1,000 mls @ 999 mls/hr 04/08/19 21:25 04/08/19 21:47 Normal Saline IV 04/08/19 22:25 999 mls/hr ONETIME ONE Administration Ketorolac Tromethamine 30 mg 04/08/19 21:25 04/08/19 21:47 Toradol IVPUSH 04/08/19 21:26 30 mg ONETIME ONE Administration Levofloxacin 750 mg 04/08/19 23:29 04/08/19 23:41 Levaquin PO 04/08/19 23:30 750 mg NOW STA Administration Sodium Chloride 10 ml 04/08/19 21:26 04/08/19 21:48 Saline Flush FLUSH 10 ml ASDIRECTED PRN Administration Keep Vein Open - Re-Assessments/Exams Free Text/Narrative Re-Assessment/Exam: 04/08/19 23:30 While the patient's UA only has trace leuks and moderate bacterial seen on micro clinically she has pyelonephritis. I will treat her with levaquin. She had no RLQ tenderness and no pain at [place]cburnies point, low suspicion for appendicitis. Urine sent for culture. Patient is feeling improved at this time. Discharge instructions as documented. Departure - Departure Time of Disposition: 23:32 Disposition: Home, Self-Care 01 Condition: Fair Clinical Impression: Pyelonephritis - Discharge Information *PRESCRIPTION DRUG MONITORING PROGRAM REVIEWED*: No *COPY OF PRESCRIPTION DRUG MONITORING REPORT IN PATIENT CYNDI: No Prescriptions: Levofloxacin [Levaquin] 750 mg PO DAILY #6 tablet Instructions: Pyelonephritis, Adult, [id number] Referrals: PCP,None [Primary Care Provider] - Forms: ED Department Discharge Additional Instructions: Take the Levaquin as prescribed. your first dose was given in the ER. Start your prescription tomorrow. Make sure you are drinking plenty of fluids. Zofran 1 tab sublingual every 16 hours as needed for nausea. [id number] Tylenol or Motrin as needed for fevers and discomfort. Follow up with your primary care provider if not better in 7-10 days. Please return to ER if your symptoms change or worsen. - My Orders Last 24 Hours: My Active Orders 04/08/19 21:26 Peripheral IV Care [RC] . DIRECTED Peripheral IV Insertion Adult [OM.PC] Routine 04/08/19 22:33 CULTURE URINE [RM] Stat - Assessment/Plan Last 24 Hours: My Active Orders 04/08/19 21:26 Peripheral IV Care [RC] . DIRECTED Peripheral IV Insertion Adult [OM.PC] Routine 04/08/19 22:33 CULTURE URINE [RM] Stat
== END 2019-04-08 23:45 | disposition home or self-care (01) ==
LOC: JD.ED 19:56
DX: N12 Tubulo-interstitial nephritis, not specified as acute or chronic (principal); F32.9 Major depressive disorder, single episode, unspecified; F41.9 Anxiety disorder, unspecified; Z88.5 Allergy status to narcotic agent; Z87.891 Personal history of nicotine dependence
CPT/HCPCS: 36415; 80053; 81001; 85007; 85027; 86140; 87086; 96361; 96374; 99284; A9270; J1885; J7040